=== PATIENT | female | born 1990 | race African-American/Black ===

== ENCOUNTER 2017-07-08 14:41 | Emergency (ER) | payer SELFPAY ==
[~2017-07-08] VITALS: Ht 170.2 cm; Wt 65.8 kg
--- NOTE | 2017-07-08 16:22 | Diagnostic Imaging Report ---
Indication: Pain Comparison: None Findings: 3 views of the right foot were obtained. No acute fractures, malalignment, erosions or periostitis are identified. Soft tissues are unremarkable. Impression: No acute findings.
--- NOTE | 2017-07-08 16:37 | Emergency Room Report ---
History of Present Illness General Chief Complaint: Lower Extremity Injury Source: Patient Present Illness HPI 37-year-old female presents to the emergency department complaining of localized pain, tenderness, and scar tissue formation to a small area underneath the ball of her foot. Patient believes that she has a retained soft tissue foreign body she states that she thinks she stepped on something in February. Patient states her symptoms have been progressive since February she stated that she attempted to remove legit foreign body herself but has not been successful. Patient denies trauma or fall otherwise she does not recall actually stepping on something. Patient states that she saw a hole on the bottom of her shoe and she assumed that she punctured her foot. She reports her pain a 6 out of 10 in severity it is exacerbated upon walking and weightbearing she denies erythema, increased temperature palpation, discharge, bleeding fevers or chills. denies lesions elsewhere on her body. Allergies: Coded Allergies: No Known Allergies (Unverified , 07/08/17) Patient History Past Medical History: see triage record Past Surgical History: none Pertinent Family History: none Last Menstrual Period: 06/01/17 Now: No Immunizations: UTD Reviewed Nursing Documentation: PMH: Agreed; PSxH: Agreed Nursing Documentation-PMH Past Medical History: No Stated History Review of Systems All Other Systems: negative except mentioned in HPI Physical Exam Vital Signs Date Time Temp Pulse Resp B/P (MAP) Pulse Ox O2 Delivery O2 Flow Rate FiO2 07/08/17 15:10 98.2 62 16 115/64 100 Room Air 98.2 Sp02 EP Interpretation: reviewed, normal General Appearance: no apparent distress, alert, GCS 15, non-toxic Head: normocephalic, atraumatic ENT: hearing grossly normal, normal voice Neck: full range of motion Respiratory: lungs clear, normal breath sounds, speaking full sentences Cardiovascular #1: regular rate, rhythm, no edema, normal capillary refill Musculoskeletal: back normal, gait/station normal, normal range of motion, tender - mild ttp to a 1cm calloused circular lesion on the ball of the foot on the right sole. Neurologic: alert, oriented x3, responsive, motor strength/tone normal, sensory intact, speech normal, grossly normal Psychiatric: judgement/insight normal Skin: normal color, no rash, warm/dry, well hydrated, other - mild ttp to a 1cm calloused circular lesion on the ball of the foot on the right sole. , no erythema, no crusting, bleeding, blisters or vesicles. Medical Decision Making PA Attestation Dr. Villegas is my supervising Physician whom patient management has been discussed with. Diagnostic Impression: Primary Impression: Plantar wart of right foot ER Course 37-year-old female presents to the emergency department complaining of localized pain, tenderness, and scar tissue formation to a small area underneath the ball of her foot. Patient believes that she has a retained soft tissue foreign body she states that she thinks she stepped on something in February. Patient states her symptoms have been progressive since February she stated that she attempted to remove legit foreign body herself but has not been successful. Patient denies trauma or fall otherwise she does not recall actually stepping on something. Patient states that she saw a hole on the bottom of her shoe and she assumed that she punctured her foot. She reports her pain a 6 out of 10 in severity it is exacerbated upon walking and weightbearing she denies erythema, increased temperature palpation, discharge, bleeding fevers or chills. denies lesions elsewhere on her body. Ddx considered but are not limited to cellulitis, Plantar wart, Tophi, retained FB, dermatitis, , eczema, tinea, callous, viral exanthem just to name a few. Vital signs: are WNL, pt. is afebrile H&PE are most consistent with Plantar wart. ORDERS: -Xray foot 3 views: Negative ED INTERVENTIONS: -Tylenol PO d/w pt. conservative treatment and podiatry follow up. DISCHARGE: At this time pt. is stable for d/c to home. Will provide printed patient care instructions, and any necessary prescriptions. Care plan and follow up instructions have been discussed with the patient prior to discharge. Other X-Ray Diagnostic Results Other X-Ray Diagnostic Results : X-Ray ordered: Right Foot # of Views/Limited Vs Complete: 3 View Indication: Pain EP Interpretation: Yes PA Xray: Interpretation reviewed, by supervising MD, and agrees with findings. Interpretation: no dislocation, no soft tissue swelling, no fractures, other - no radiopaque FB Impression: No acute disease Electronically Signed by: Ramona Doss PA-C Last Vital Signs Date Time Temp Pulse Resp B/P (MAP) Pulse Ox O2 Delivery O2 Flow Rate FiO2 07/08/17 16:21 98.2 07/08/17 15:10 62 16 115/64 100 Room Air Disposition: HOME, SELF-CARE Condition: Stable Scripts Acetaminophen* (TYLENOL EXTRA STRENGTH*) 500 Mg Tablet 500 MG ORAL Q8H, #20 TAB 0 Refills Prov: Ramona Doss 07/08/17 Salicylic Acid (Salicylic Acid) 10 Ml Liq.film 1 APPLIC TP DAILY, #10 ML Prov: Ramona Doss 07/08/17 Referrals: NOT CHOSEN IPA/MD,REFERRING (PCP) Patient Instructions: Plantar Warts Additional Instructions: Take medications as directed. Follow up with a Primary Care Provider or ( Division Traffic Superintendent ) in 3-5 days, even if your symptoms have resolved. --Please review list of primary care clinics, if you do not already have a primary care provider Return sooner to ED if new symptoms occur, or current symptoms become worse. - Please note that this Emergency Department Report was dictated using [employer] mixer technology software, occasionally this can lead to erroneous entry secondary to interpretation by the dictation equipment. Ramona Doss July 08, 2017 16:37
[2017-07-08] MEDS ORDERED: SALICYLIC ACID TP (16:45)
[2017-07-08] MEDS ORDERED: TYLENOL EXTRA500 MG ORAL (16:45)
[2017-07-08 17:03] VITALS: BP 115/64
== END 2017-07-08 17:10 | disposition home or self-care (01) ==
LOC: EMR 16:19
DX: B07.0 Plantar wart (principal); L84 Corns and callosities
CPT/HCPCS: 99284